=== PATIENT | male | born 1945 | race Caucasian/White ===

== ENCOUNTER → 2016-08-26 | Outpatient (CLI) | payer BC, MEDICARE ==
[~2016-08-26] MED LIST: ASPIRIN 81M81 MG/TA2 PO; BYSTOLIC10 MG PO; CARDI-OMEGA1000 MG PO; EFFEXOR XR37.5 MG/CA PO; EFFEXOR-XR150 MG PO; HCTZ 25MG TAB25 MG PO; KLONOPIN 0.5MG0.5 MG PO; LEXAPRO 5MG5 MG PO; LIPITOR 10MG10 MG PO; MONOPRIL40 MG PO; PEPCID AC 10MG10 MG PO; PLAVIX 75MG TAB75 MG PO; PRAVACHOL 40MG40 MG PO; PRILOSEC 20MG20 MG PO; UNABLE; WELLBUTRIN XL150 MG PO; ZITHROMAX Z PA250 MG PO
== END ==
LOC: BHSO 09:49
DX: F33.41 Major depressive disorder, recurrent, in partial remission (principal)

== ENCOUNTER → 2016-09-28 | Outpatient (CLI) | payer BC, MEDICARE | LOC: BHSO 08:51 | DX: F33.41 Major depressive disorder, recurrent, in partial remission (principal) ==

== ENCOUNTER → 2017-03-24 | Outpatient (CLI) | payer BC, MEDICARE | LOC: COL.RAD 10:32 | DX: K22.8 Other specified diseases of esophagus (principal); K21.9 Gastro-esophageal reflux disease without esophagitis ==

== ENCOUNTER → 2017-04-02 | Outpatient (CLI) | payer BC, MEDICARE | LOC: BHSO 08:38 | DX: F33.42 Major depressive disorder, recurrent, in full remission (principal) ==

== ENCOUNTER → 2017-09-24 | Outpatient (CLI) | payer BC, MEDICARE | LOC: BHSO 08:55 | DX: F33.42 Major depressive disorder, recurrent, in full remission (principal) | CPT/HCPCS: G0463 ==

== ENCOUNTER → 2017-11-12 | Outpatient (CLI) | payer BC, MEDICARE | LOC: BHSO 10:41 | DX: F41.1 Generalized anxiety disorder (principal) | CPT/HCPCS: G0463 ==

== ENCOUNTER → 2018-05-20 | Outpatient (CLI) | payer BC, MEDICARE | LOC: BHSO 10:44 | DX: F33.42 Major depressive disorder, recurrent, in full remission (principal) | CPT/HCPCS: G0463 ==

== ENCOUNTER → 2019-02-01 | Outpatient (CLI) | payer BC, MEDICARE | LOC: BHSO 10:43 | DX: F33.42 Major depressive disorder, recurrent, in full remission (principal) | CPT/HCPCS: G0463 ==

== ENCOUNTER → 2019-02-21 | Outpatient (CLI) | payer BC, MEDICARE | LOC: COL.RAD 07:02 | DX: R27.0 Ataxia, unspecified (principal); Z86.73 Personal history of transient ischemic attack (TIA), and cerebral infarction without residual deficits | CPT/HCPCS: Q9967 ==

== ENCOUNTER → 2019-03-02 | Outpatient (CLI) | payer BC, MEDICARE | LOC: COL.RAD 14:30 | DX: M47.812 Spondylosis without myelopathy or radiculopathy, cervical region (principal); M48.02 Spinal stenosis, cervical region; M99.71 Connective tissue and disc stenosis of intervertebral foramina of cervical region ==

== ENCOUNTER → 2019-04-26 | Outpatient (CLI) | payer BC, MEDICARE | LOC: MHCPAIN 10:12 | DX: M54.12 Radiculopathy, cervical region (principal); M47.812 Spondylosis without myelopathy or radiculopathy, cervical region | CPT/HCPCS: G0463 ==

== ENCOUNTER → 2019-07-19 | Outpatient (CLI) | payer BC, MEDICARE | LOC: BHSO 10:33 | DX: F41.1 Generalized anxiety disorder (principal) | CPT/HCPCS: G0463 ==

== ENCOUNTER → 2020-01-18 | Outpatient (CLI) | payer BC, MEDICARE | LOC: BHSO 09:55 | DX: F33.42 Major depressive disorder, recurrent, in full remission (principal) | CPT/HCPCS: G0463 ==

== ENCOUNTER → 2020-02-26 | Outpatient (CLI) | payer BC, MEDICARE | LOC: MHCPAIN 11:10 | DX: M47.817 Spondylosis without myelopathy or radiculopathy, lumbosacral region (principal); M54.5 Low back pain; M96.1 Postlaminectomy syndrome, not elsewhere classified; G89.29 Other chronic pain | CPT/HCPCS: G0463 ==